=== PATIENT | male | born 2000 | race African-American/Black ===

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

== ENCOUNTER 2020-01-01 15:04 | Emergency (ER) | payer MEDICAID ==
[~2020-01-01] VITALS: Ht 182.9 cm; Wt 82.0 kg
[2020-01-01 15:10] VITALS: BP 154/76
[2020-01-01] MEDS ORDERED: METHOCARBAMOL 750MG TABLET PO SCH (15:45)
[2020-01-01] MEDS ORDERED: KETOROLAC 60MG/2ML VIAL IM ONE (15:45)
== END 2020-01-01 17:02 | disposition home or self-care (01) ==
LOC: ER 15:04
DX: S20.219A Contusion of unspecified front wall of thorax, initial encounter (principal); V43.62XA Car passenger injured in collision with other type car in traffic accident, initial encounter; W22.12XA Striking against or struck by front passenger side automobile airbag, initial encounter; Y93.89 Activity, other specified; Y92.488 Other paved roadways as the place of occurrence of the external cause
CPT/HCPCS: 71120; 96372; 99283; J1885